=== PATIENT | female | born 1975 | race Caucasian/White ===

== ENCOUNTER 2020-08-27 07:54 | Emergency (ER) | payer MEDICARE, MEDICAID ==
[~2020-08-27] VITALS: Ht 165.1 cm; Wt 90.9 kg
[~2020-08-27 07:54] MED LIST: DIVA-112 PO
[2020-08-27] MEDS ORDERED: LIDOCAINE 1% 10 ML VIAL SQ ONE (10:15)
[2020-08-27] MEDS ORDERED: POVIDONE-IODINE 10% 15 ML SOLUTION UD TP ONE (10:15)
[2020-08-27] MEDS ORDERED: BACITRACIN 0.9 GM PACKET OINTMENT TP ONE (10:15)
[2020-08-27] MEDS ORDERED: CEPHALEXIN MONOHYDRATE 500 MG CAPSULE PO ONE (10:15)
[2020-08-27] MEDS ORDERED: ACETAMINOPHEN 325 MG TABLET PO ONE (10:15)
[2020-08-27 12:02] VITALS: BP 155/90
== END 2020-08-27 12:03 | disposition home or self-care (01) ==
LOC: EMS 07:55
DX: L03.031 Cellulitis of right toe (principal); I10 Essential (primary) hypertension; E03.9 Hypothyroidism, unspecified; Z79.899 Other long term (current) drug therapy
CPT/HCPCS: 10060; 99283; J3490

== ENCOUNTER 2021-02-19 11:33 | Emergency (ER) | payer MEDICARE, MEDICAID ==
[~2021-02-19] VITALS: Ht 165.1 cm; Wt 90.9 kg
[2021-02-19] MEDS ORDERED: KETOROLAC TROMETHAMINE 30 MG/ML VIAL IM ONE (13:15)
[2021-02-19 13:43] VITALS: BP 131/77
== END 2021-02-19 13:52 | disposition home or self-care (01) ==
LOC: EMS 11:36
DX: L60.0 Ingrowing nail (principal); I10 Essential (primary) hypertension; E03.9 Hypothyroidism, unspecified
CPT/HCPCS: 96372; 99283; J1885